=== PATIENT | male | born 1950 | race Caucasian/White ===

== ENCOUNTER → 2018-08-31 | Outpatient (CLI) | payer MEDICARE ==
[2018-08-31 15:22] LABS: ALBUMIN 3.7 g/dL (3.4-5.0); DIRECT BILIRUBIN 0.2 mg/dL (0.0-0.2); TOTAL BILIRUBIN 0.6 mg/dL (0.2-1.0); TOTAL PROTEIN 7.9 g/dL (6.4-8.2)
[2018-08-31 15:30] LABS: FREE T4 0.99 ng/dL (0.76-1.46); THYROID STIM HORMONE (TSH) 2.099 uIU/mL (0.358-3.74)
== END | disposition home or self-care (01) ==
LOC: LAB 14:28
PROVIDERS: ATTEND Nurse Practitioner
DX: I47.2 Ventricular tachycardia (principal); I10 Essential (primary) hypertension
CPT/HCPCS: 36415; 80076; 84439; 84443

== ENCOUNTER → 2018-09-09 | Outpatient (CLI) | payer MEDICARE ==
[~2018-09-09] MED LIST: ALBUTEROL SULFATE 2.5 MG/3 ML NEBU. NEB ONE
--- NOTE | 2018-09-13 14:45 | RESP ---
DATE OF SERVICE: 09/09/2018 REFERRING PROVIDER: Eileen Regan. The patient's FVC was 3.38, which is 75% predicted, FEV1 2.43, which is 73% predicted. The FEV1/FVC ratio was normal. SCU39-23 was 52% predicted. There was no response to bronchodilators. Vital capacity was 62% predicted. The total lung capacity could not be performed. Diffusion capacity was 105% predicted. IMPRESSION: 1. Spirometry findings suggesting small airway dysfunction. 2. Cannot exclude restrictive lung disease as total lung volumes could not be performed. 3. No response to bronchodilators. 4. Normal diffusion capacity. JINNY LUBIN MD DR: MYRNA/sherry JOB#: [id number] / [id number] EILEEN Mcdonald APRN
== END | disposition home or self-care (01) ==
LOC: PF 08:57
PROVIDERS: ATTEND Nurse Practitioner
DX: I47.2 Ventricular tachycardia (principal)
CPT/HCPCS: 94060; 94640; 94729; J7613

== ENCOUNTER → 2018-09-15 | Outpatient (CLI) | payer MEDICARE ==
[~2018-09-15] MED LIST changes: -ALBUTEROL SULFATE 2.5 MG/3 ML NEBU. NEB ONE; +REGADENOSON 0.4 MG/5 ML DISP.SYRIN. IV ONE
--- NOTE | 2018-09-15 11:06 | CARD ---
MR#: [id number] Date of Study: 09/15/2018 Ordering Physician: NILAY MCKEON, Referring Physician: NILAY MCKEON, Tech: Linsey Nunez [facility] APPROVED REPORT EXAM: Two-dimensional and M-mode echocardiogram with Doppler and color Doppler. Other Information Quality : GoodHR: 71bpm Rhythm : Pacemaker INDICATION Cardiomyopathy 2D DIMENSIONS RVDd3.3 (2.9-3.5cm)Left Atrium(2D)4.1 (1.6-4.0cm) IVSd1.3 (0.7-1.1cm)Aortic Root(2D)4.0 (2.0-3.7cm) LVDd5.8 (3.9-5.9cm)LVOT Diameter2.5 (1.8-2.4cm) PWd1.1 (0.7-1.1cm)LVDs5.3 (2.5-4.0cm) FS (%) 8.9 %SV32.0 ml LVEF(%)20.0 (>50%) M-Mode DIMENSIONS Left Atrium(MM)4.25 (2.5-4.0cm)Aortic Root4.00 (2.2-3.7cm) Aortic Valve AoV Peak Diego.98.2cm/sAoV VTI18.6cm AO Peak GR.3.9mmHgLVOT Peak Diego.78.4cm/s AO Mean GR.2mmHgAVA (VMAX)3.80cm2 DANNY (VTI)3.70cm2 Mitral Valve MV E Aodpkekt72.8cm/sMV E Peak Gr.2mmHg MV DECEL [id number] A Evbgelbg08.0cm/s MV E Mean Gr.1mmHgE/A Ratio0.4 MV A Scwxstnh143px Pulmonary Valve PV Peak Diiywnxd16.5cm/s LEFT VENTRICLE The Left Ventricle is borderline dilated. There is borderline to mild concentric left ventricular hyp ertrophy. The systolic function is moderately impaired. The Ejection Fraction is 30-35%. There is balbina bal hypokinesis of the left ventricle. Tissue Doppler imaging reveals moderate left ventricular diast olic dysfunction. RIGHT VENTRICLE The right ventricle is normal size. There is normal right ventricular wall thickness. The right ventr icular systolic function is normal. ATRIA The left atrium is mildly dilated. The right atrium size is normal. The interatrial septum is intact with no evidence for an atrial septal defect or patent foramen ovale as noted on 2-D or Doppler imagi ng. AORTIC VALVE The aortic valve is trileaflet. The aortic valve is normal in structure and function. Doppler and Col or Flow revealed no significant aortic regurgitation. There is no significant aortic valvular stenosi s. MITRAL VALVE The mitral valve is normal in structure and function. There is no evidence of mitral valve prolapse. There is no mitral valve stenosis. Doppler and Color-flow revealed trace mitral regurgitation. TRICUSPID VALVE The tricuspid valve is normal in structure and function. Doppler and Color Flow revealed no tricuspid valve regurgitation noted. There is no tricuspid valve prolapse or vegetation. There is no tricuspid valve stenosis. PULMONIC VALVE Pulmonic valve not well visualized. GREAT VESSELS The aortic root is mildly enlarged. The ascending aorta is normal in size. The IVC is normal in size and collapses >50% with inspiration. PERICARDIAL EFFUSION There is no evidence of significant pericardial effusion. Critical Notification Critical Value: No <Conclusion> The systolic function is moderately impaired. The Ejection Fraction is 30-35%. There is global hypokinesis of the left ventricle. Signed by : Nilay Mckeon, Electronically Approved : 09/15/2018 11:05:23
--- NOTE | 2018-09-15 13:10 | RAD ---
MR#: [id number] Date of Study: 09/15/2018 Ordering Physician: NILAY MCKEON, Referring Physician: FUAD ALCOCER Tech: TRANG Velasquez APPROVED REPORT Test Type: Pharmacological Stress Nurse/Tech: Moses MATHIS Test Indications: Non ischemic Cardiomyopathy Cardiac History: HTN, PPM, See EMR Medications: ASA 81mg, See EMR Medical History: DM, See EMR Resting ECG: V-Paced Resting Heart Rate: 82 bpm Resting Blood Pressure: 123/69mmHg Pretest Chest Pain: No chest pain Nurse/Tech Notes Lungs CTA. Heart tones regular. Consent: The procedure was explained to the patient in lay terms. Informed consent was witnessed. Mk eout was entered into [employer]. History and Stress Test performed by RT Christiano (R) (N) Pharm. Details Pharmacologic stress testing was performed using 0.4mg per 5ml of regadenoson given intravenously ove r 7-10 seconds. Stress Symptoms No chest pain or symptoms. POST EXERCISE Reason for Termination: Infusion complete Max HR: 102 bpm Max Blood Pressure: 126/71mmHg Chest Pain: No. Arrhythmia: Yes. PVCs ST Change: No. INTERPRETATION Stress EKG Conclusion: Baseline EKG showed atrial sensed ventricular paced rhythm. Nondiagnostic pierson ges at peak stress. No arrhythmias. Imaging Protocol IMAGE PROTOCOL: Rest Tc-99m/stress Tc-99m 1 day Rest: Stress: Viability: Radiopharm.Tc99m OzkyqeyxgDn17b Sestamibi Lrui26cDi 31mCi Duration 15min. 13min. Img Date 09/15/2018 09/15/2018 Inj-Img Stli99dzz. 75min. Rest Admin Site:IV - Right AntecubitalAdministrator:DUSTY Miller, ARRT (R)(N) Stress Admin Site: IV - Right AntecubitalAdministrator: RT Christiano (R)(N) STRESS DATA End Diast. Vol.162.0mlLVEDV index BSA73.0ml End Syst. Vol.116.0mlLVESV index BSA52.0ml Myocardial Bprm668.0gEject. Xmwekctn66.0% Stress Scores Regional WT3.00Summed WT51.00 Regional WM0.00Summed WM42.00 LV Perfusion Scintigraphic images showed fixed defect involving the inferior wall most probably diaphragmatic atte nuation artifact. No other fixed or reversible defects seen. Wall Motion Severe left ventricle systolic dysfunction. Abnormal septal wall motion probably from paced rhythm. The ejection fraction is calculated 28%. LV Perf. Quant 17 Seg. SSS13.00 17 Seg. SRS13.00 17 Seg. SDS0.00 Stress Defect Extent (% LAD)5.60Rest Defect Extent (% LAD)7.50Rev. Defect Extent (% LAD)0.00 Stress Defect Extent (% LCX) 60.00Rest Defect Extent (% LCX)47.50Rev. Defect Extent (% LCX)13.80 Stress Defect Extent (% RCA)28.90Rest Defect Extent (% RCA)27.80Rev. Defect Extent (% RCA)4.40 Stress Defect Extent (% MANE)25.40Rest Defect Extent (% MANE)22.60Rev. Defect Extent (% MANE)4.30 Conclusion 1. Regadenoson cardioisotope stress test showed diaphragmatic attenuation artifact without any defini te evidence for ischemia or infarct. 2. Severe left ventricle systolic dysfunction. Abnormal septal wall motion probably from paced rhyth m. The ejection fraction is calculated 28%. 3. Intermediate risk for cardiac events based on diminished left ventricle function. Signed by : Shawn Figueroa, Electronically Approved : 09/15/2018 13:10:10
== END | disposition home or self-care (01) ==
LOC: ECHO 09:06
PROVIDERS: ATTEND Internal Medicine Cardiovascular Disease
DX: I42.9 Cardiomyopathy, unspecified (principal); I11.0 Hypertensive heart disease with heart failure; I50.20 Unspecified systolic (congestive) heart failure; E11.9 Type 2 diabetes mellitus without complications
CPT/HCPCS: 78452; 93017; 93306; 96374; 96375; 96376; A9500; J2785

== ENCOUNTER → 2019-05-02 | Outpatient (CLI) | payer MEDICARE, OTHER ==
[~2019-05-02] VITALS: Ht 180.3 cm; Wt 105.7 kg
[2019-05-02] VITALS (18 sets, daily range): BP systolic 92–146; BP diastolic 50–92
[~2019-05-02] MED LIST changes: +AMIO200T4 PO; +ASPI81TA50 PO; +CARV25TA PO; +DOXA2TAB2 PO; +GLIP2.5T4 PO; +HEPARIN for ARTERIAL LINE 1,500 ML ONE; +HEPARIN for IV BOLUS 10,000 UNIT/10 ML VIAL. IART ONE; +HEPARIN for IV BOLUS 10,000 UNIT/10 ML VIAL. ONE; +IODIXANOL 320 MG/ML 100 ML VIAL. IART ONE; +IODIXANOL 320 MG/ML 100 ML VIAL. ONE; +LIDOCAINE 1% PF 2 ML VIAL. INJ ONE; +LIDOCAINE 1% PF 2 ML VIAL. ONE; +MIDAZOLAM HCL/PF 2 MG/2 ML VIAL. IV ONE; +MIDAZOLAM HCL/PF 2 MG/2 ML VIAL. ONE; +NITROGLYCERIN 200 MCG/2 ML SYRINGE FOR CATH/VASC LAB. IART ONE; +NITROGLYCERIN 200 MCG/2 ML SYRINGE FOR CATH/VASC LAB. ONE; +OMEP20CA10 PO; -REGADENOSON 0.4 MG/5 ML DISP.SYRIN. IV ONE; +SPIR25TA5 PO; +VERAPAMIL 5 MG/2 ML VIAL. IART ONE; +VERAPAMIL 5 MG/2 ML VIAL. ONE; +fentaNYL PF VIAL 100 MCG/2 ML VIAL IV ONE; +fentaNYL PF VIAL 100 MCG/2 ML VIAL ONE
[2019-05-02 07:30] LABS: HEMATOCRIT 48.9 % (39.0-53.0); HEMOGLOBIN 16.7 g/dL (13.0-17.5); RED BLOOD COUNT 5.21 x10^6/uL (4.30-5.70); RED CELL DISTRIBUTION WIDTH 13.2 % (11.5-14.5); WHITE BLOOD COUNT 9.4 x10^3/uL (4.0-11.0)
[2019-05-02 07:37] LABS: PROTHROMBIN TIME PATIENT 13.9 SEC (11.7-14.0)
[2019-05-02 07:50] LABS: CALCIUM 8.7 mg/dL (8.5-10.1); GFR 74.1; POTASSIUM 4.5 mmol/L (3.5-5.1)
--- NOTE | 2019-05-02 09:21 | CARD ---
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 He has not had ischemic evaluation in several years. . INDICATION The indication(s) include : arrhythmia, dyspnea. CS Clinical Frailty Scale [facility] Clinical Frailty Scale: Vulnerable Heart Failure Heart Failure: Yes If Yes, Newly Diagnosed: No If Yes, HF Type: Systolic If Yes, NYHA Class: Class II PROCEDURE NARRATIVE INFORMED CONSENT: After explaining the risks and benefits of the procedure and alternatives, informed consent was obtained. The patient was brought electively to the cardiac catheterization lab. A timeout was performed confi rming the patient's name, date of , procedure, and site of procedure. All necessary personnel w ere wearing the appropriate protective equipment and radiation monitor devices. (See nursing notes for medications administered). ACCESS: The right wrist was sterilely prepped and draped in the usual fashion. The right wrist was infiltrat ed with 1 mL of 2% lidocaine for subcutaneous anesthesia. A 6 Swedish Terumo glide sheath was inserte d into the right radial artery without difficulty. CORONARY ANGIOGRAPHY: Right and left coronary angiography was performed using a 6Fr TIG 4.0 catheter. Left ventricular en d diastolic pressure was obtained with a TIG catheter and pullback was performed. All catheter excha nges and advancements were performed over a guidewire. CLOSURE: At case completion the right radial sheath was removed and a Terumo radial band was applied with 13 m l of air. COMPLICATIONS: The patient tolerated the procedure well and there were no immediate complications. FINDINGS: HEMODYNAMICS: LVEDP 6 mm Hg No gradient on LV to aortic pullback. AO: 128/78 LEFT VENTRICULOGRAM: Deferred due to known EF of 25% by echo. CORONARY ANGIOGRAPHY: LM is a large caliber vessel with normal angiographic appearance. LAD is a large caliber vessel with normal angiographic appearance. LCx is a large caliber dominant vessel with normal angiographic appearance. OM1 is a moderate caliber vessel with normal angiographic appearance. LPDA is a moderate caliber vessel with normal angiographic appearance. RCA is a small caliber non-dominant vessel with normal angiographic appearance. *Overall, there is significant endothelial dysfunction due to NICM with sluggish flow noted throughou t the arterial tree. Conclusion 1. Normal left sided filling pressures. 2. Normal angiographic appearance of the coronary arteries. Recommendations Continue present medical therapy. EP referral for medical therapy titration as needed. Signed by : Nilay Mckeon, Electronically Approved : 05/02/2019 09:20:39
--- NOTE | 2019-05-02 13:32 | NUR ---
Patient d/c at 1315. Taken by wheelchair to car-- driven home by friend. Arm board intact, pressure dressing applied to right wrist. D/C instructions provided on bleeding, not lifting with right arm, no driving x2 days, keeping arm board on for 24 hours. Patient is a/o, no pain. All belongings taken with patient at time of d/c
== END ==
LOC: CCL 06:47
PROVIDERS: ATTEND Internal Medicine Cardiovascular Disease
DX: R94.30 Abnormal result of cardiovascular function study, unspecified (principal); I42.8 Other cardiomyopathies; I49.9 Cardiac arrhythmia, unspecified
CPT/HCPCS: 36415; 80048; 85027; 85610; 93458; 99152; 99153; C1769; C1892; J1644; J2250; J3010; J3490; Q9967